=== PATIENT | female | born 1990 | race American Indian/Alaskan Native ===

== ENCOUNTER 2018-12-30 08:58 | Emergency (ER) | payer SELFPAY ==
[2018-12-30 09:03] VITALS: BP 142/82
--- NOTE | 2018-12-30 09:13 | Emergency Department Report ---
Chief Complaint: BP Check / Ring removal req Stated Complaint: BLOOD PRESSURE CHECK Time Seen by Provider: 12/30/18 09:10 - HPI History of Present Illness: Patient is a 28-year-old [place] female who has a past medical history of hypertension who is noncompliant with medications or a low-sodium diet and states that she "felt weird". Patient states last night and this morning she has a very mild headache. She denies chest pain shortness of breath nausea vomiting or diaphoresis. Patient states that she did have a large salt load with her diet yesterday. - ROS Review of Systems: All of the systems are reviewed and are negative - Exam Vital Signs: Vital Signs 12/30/18 09:00 Temperature 97.9 F Pulse Rate 68 Respiratory 18 Rate Blood Pressure 142/82 [Right] O2 Sat by Pulse 100 Oximetry Physical Exam: Patient is alert and oriented 3 in no acute distress. Heart tones are within normal limits. Lungs are clear to auscultation. Abdomen soft nontender. Patient moving all extremities with normal strength and coordination. MSE screening note: Focused history and physical exam performed. Due to findings the following was ordered: ED Medical Decision Making - Medical Decision Making Patient is a non-emergent patient at this time. Blood pressures 142/82. Suggested the patient follow his [facility] at medical clinic for medication refill. Patient also should a here to a low-sodium diet and information given. Patient be discharged. ED Disposition for MSE Clinical Impression: Hypertension Disposition: MED SCREENING EXAM-LEFT Is pt being admited?: No Does the pt Need Aspirin: No Condition: Stable Instructions: Hypertension (ED), Low Sodium Diet (ED) Referrals: SARAY BURGER MD [Referring] - 3-5 Days Time of Disposition: 09:12
== END 2018-12-30 09:17 | disposition left against medical advice (07) ==
LOC: ED 08:58
DX: I10 Essential (primary) hypertension (principal)
CPT/HCPCS: 99281

== ENCOUNTER 2019-03-11 13:58 | Emergency (ER) | payer SELFPAY ==
[2019-03-11 14:22] VITALS: BP 135/80
--- NOTE | 2019-03-11 14:28 | Emergency Department Report ---
ED General Adult HPI - General Chief complaint: Dental/Oral Stated complaint: TOOTHACHE Time Seen by Provider: 03/11/19 14:22 Source: patient Mode of arrival: Ambulatory Limitations: No Limitations - History of Present Illness Initial comments: 28 yo AA F pt complains of right upper dental pain x 3 days. Denies fever or facial swelling. States tooth pain causing a headache. Denies hx of dental abscesses. Not currently following with a dentist. States pain is a 9/10 in severity. IBuprofen 800 mg is helping some wiht the pain. -: Sudden Severity scale (0 -10): 9 Quality: aching Consistency: constant - Related Data Previous Rx's Medication Instructions Recorded Last Taken Type Acetaminophen/Codeine [Tylenol 1 tab PO Q8H PRN #5 tab 03/11/19 Unknown Rx /Codeine # 3 tab] Amoxicillin [Trimox CAP] 500 mg PO Q8H 7 Days #21 capsule 03/11/19 Unknown Rx Allergies Allergy/AdvReac Type Severity Reaction Status Date / Time No Known Allergies Allergy Verified 12/30/18 09:00 ED Review of Systems ROS: Stated complaint: TOOTHACHE Other details as noted in HPI Comment: All other systems reviewed and negative Constitutional: denies: chills, fever, malaise ENT: as per HPI ED Past Medical Hx - Past Medical History Previous Medical History?: No - Surgical History Past Surgical History?: No - Social History Smoking Status: Never Smoker Substance Use Type: None - Medications Home Medications: Home Medications Medication Instructions Recorded Confirmed Last Taken Type Acetaminophen/Codeine [Tylenol 1 tab PO Q8H PRN #5 tab 03/11/19 Unknown Rx /Codeine # 3 tab] Amoxicillin [Trimox CAP] 500 mg PO Q8H 7 Days #21 capsule 03/11/19 Unknown Rx ED Physical Exam - General Limitations: No Limitations General appearance: alert, in no apparent distress - Head Head exam: Present: atraumatic, normocephalic - Eye Eye exam: Present: normal appearance - ENT ENT exam: Present: normal exam - Expanded ENT Exam Expanded 1 - Other (mild swelling and erythema noted with tenderness to palpation. No abscess noted) - Neck Neck exam: Present: normal inspection, full ROM - Respiratory Respiratory exam: Absent: respiratory distress - Cardiovascular Cardiovascular Exam: Present: regular rate - Back Exam Back exam: Present: normal inspection - Neurological Exam Neurological exam: Present: alert, oriented X3 - Psychiatric Psychiatric exam: Present: normal affect, normal mood - Skin Skin exam: Present: warm, dry, intact, normal color. Absent: rash ED Course Vital Signs 03/11/19 14:18 Temperature 98.6 F Pulse Rate 72 Respiratory 18 Rate Blood Pressure 135/80 O2 Sat by Pulse 100 Oximetry ED Medical Decision Making - Medical Decision Making Pt here with complaints of right upper dental pain x 3 days. Denies fever. Erythema and swelling noted of gumline without abscess. Vitals are normal. Pt is stable for discharge home. Amoxil Rx given. Pt also given dentla clinic list and informed to f/u within 1-2 days. Strict return precautions were discussed in detail with pt who states understanding. Critical care attestation.: If time is entered above; I have spent that time in minutes in the direct care of this critically ill patient, excluding procedure time. ED Disposition Clinical Impression: Pain, dental Disposition: DC-01 TO HOME OR SELFCARE Is pt being admited?: No Condition: Stable Instructions: Toothache (ED) Prescriptions: Amoxicillin [Trimox CAP] 500 mg PO Q8H 7 Days #21 capsule Acetaminophen/Codeine [Tylenol /Codeine # 3 tab] 1 tab PO Q8H PRN #5 tab PRN Reason: severe pain
== END 2019-03-11 15:19 | disposition home or self-care (01) ==
LOC: ED 13:58
DX: K08.89 Other specified disorders of teeth and supporting structures (principal); Z79.899 Other long term (current) drug therapy